=== PATIENT | female | born 1995 | race Caucasian/White ===

== ENCOUNTER 2022-06-05 14:30 | Outpatient (CLI) | payer OTHER ==
[2022-06-06 12:58] LABS: BILIRUBIN,URINE NEGATIVE (NEGATIVE); GLUCOSE, URINE (UA) NEGATIVE (NEGATIVE); KETONES,URINE (UA) NEGATIVE (NEGATIVE); LEUKOCYTE ESTERASE, URINE NEGATIVE (NEGATIVE); NITRITE,URINE NEGATIVE (NEGATIVE); OCCULT BLOOD,URINE NEGATIVE (NEGATIVE); PROTEIN,URINE NEGATIVE (NEGATIVE); UROBILINOGEN,URINE 0.2 (NORMAL) E.U./dL (NORMAL)
[2022-06-06 13:04] LABS: BACTERIA,URINE Moderate /HPF (None Seen); CLARITY,URINE HAZY (CLEAR); MUCUS,URINE Few Strands; RBC,URINE None Seen /HPF (0-5); SQUAMOUS EPITHELIAL CELL,UR MOD Squamous (<= Few); WBC,URINE 0-3 /HPF (0-5)
== END 2022-06-05 23:59 | disposition home or self-care (01) ==
LOC: LAB.WC 14:30
PROVIDERS: ATTEND Obstetrics & Gynecology
DX: Z34.90 Encounter for supervision of normal pregnancy, unspecified, unspecified trimester (principal)
CPT/HCPCS: 81001; 87086

== ENCOUNTER 2022-06-17 18:38 | Outpatient (CLI) | payer OTHER ==
--- NOTE | 2022-06-19 11:02 | Ultrasound Report ---
PROCEDURE: OB First Trimester w/TV INDICATIONS: POSITIVE TEST OUTSIDE/PRIOR DATING DATA: Last menstrual period (LMP): 03/24/2022. LMP-based estimated date of delivery (ERNA): 12/29/2022. First dating scan (date and location): 06/17/2022. Estimated date of delivery (ERNA) from first dating scan: 12/27/2022. The below data below was generated using the ultrasound ERNA of 12/27/2022 TECHNIQUE: Real-time scanning was performed of the fetus and maternal pelvic organs, with image documentation. Endovaginal scanning was also performed to better visualize the fetus and maternal ovaries. COMPARISON: None FINDINGS: Embryo: An intrauterine gestation is seen with a mean gestational sac of 6.1 cm corresponding with 1 2 weeks 2 days. [place]-rump length is 6.0 cm corresponding with 12 weeks 3 days. No perigestational bl eed. Heart rate: 164 Measurement variability in dating: +/- 4 weeks by LMP, +/- 7 days by mean sac diameter (use before 6 weeks gestation if crown-rump length not able to be measured), +/- 5 days by crown-rump length (6-12 weeks gestation). Maternal organs: Ovaries normal. IMPRESSION: Live intrauterine with a composite gestational age of 12 weeks 3 days. Reviewed by: Rusty Camacho on 06/19/2022 11:01 AM PST Approved by: Rusty Camacho on 06/19/2022 11:01 AM PST Station ID: [id number]
== END 2022-06-17 18:39 | disposition home or self-care (01) ==
LOC: DI 18:38
PROVIDERS: ATTEND Nurse Practitioner
DX: Z34.91 Encounter for supervision of normal pregnancy, unspecified, first trimester (principal)

== ENCOUNTER 2022-06-18 08:00 | Outpatient (CLI) | payer OTHER ==
[2022-06-18 23:12] LABS: CHLAMYDIA TRACHOMATIS DNA NEGATIVE (NEGATIVE); NEISSERIA GONORRHOEAE DNA NEGATIVE (NEGATIVE); TRICHOMONAS VAGINALIS DNA NEGATIVE (NEGATIVE)
== END 2022-06-18 23:59 | disposition home or self-care (01) ==
LOC: LAB 08:00
PROVIDERS: ATTEND Obstetrics & Gynecology
DX: Z11.3 Encounter for screening for infections with a predominantly sexual mode of transmission (principal)
CPT/HCPCS: 87491; 87591; 87661

== ENCOUNTER 2022-06-18 09:20 | Outpatient (CLI) | payer OTHER ==
[2022-06-18 09:38] LABS: BASOPHILS % (AUTO) 0.1 %; EOSINOPHILS # (AUTO) 0.1 10^3/uL (0.0-0.7); EOSINOPHILS % (AUTO) 1.3 %; HCT - HEMATOCRIT 39.3 % (37.0-47.0); HGB - HEMOGLOBIN 13.3 g/dL (12.0-16.0); LYMPHOCYTES % (AUTO) 26.1 %; MEAN CORPUSCULAR HEMOGLOBIN 29.8 pg (27.0-31.0); MEAN CORPUSCULAR HGB CONC 33.8 g/dL (32.0-36.0); MEAN CORPUSCULAR VOLUME 87.9 fL (81.0-99.0); MEAN PLATELET VOLUME 11.8 fL (7.9-10.8); MONOCYTES # (AUTO) 0.4 10^3/uL (0.0-1.0); MONOCYTES % (AUTO) 5.1 %; NEUTROPHILS # (AUTO) 5.1 10^3/uL (1.5-6.6); NEUTROPHILS % (AUTO) 67.1 %; PLT - PLATELET COUNT 192 10^3/uL (130-450); RED BLOOD COUNT 4.47 10^6/uL (4.20-5.40); RED CELL DISTRIBUTION WIDTH 12.4 % (12.0-15.0); WHITE BLOOD COUNT 7.7 x10^3/uL (4.8-10.8)
[2022-06-19 04:08] LABS: HBsAG SCREEN Negative (Negative); HCV AB <0.1 s/co ratio (0.0-0.9); HIV SCREEN 4TH GENERATION Non Reactive (Non Reactive)
[2022-06-19 06:09] LABS: RPR Non Reactive (Non Reactive)
[2022-06-20 08:08] LABS: VARICELLA-ZOSTER AB IGG <135 index (Immune >165)
== END 2022-06-18 09:21 | disposition home or self-care (01) ==
LOC: LAB 09:20
PROVIDERS: ATTEND Nurse Practitioner
DX: Z34.90 Encounter for supervision of normal pregnancy, unspecified, unspecified trimester (principal)
CPT/HCPCS: 36415; 85025; 86592; 86762; 86787; 86803; 86850; 86900; 86901; 87340; 87389

== ENCOUNTER 2022-07-16 11:19 | Outpatient (CLI) | payer OTHER | END 2022-07-16 11:20 | disposition home or self-care (01) | LOC: LAB 11:19 | PROVIDERS: ATTEND Obstetrics & Gynecology | DX: Z34.91 Encounter for supervision of normal pregnancy, unspecified, first trimester (principal); Z3A.12 12 weeks gestation of pregnancy | CPT/HCPCS: 36415 ==

== ENCOUNTER 2022-08-11 15:13 | Outpatient (CLI) | payer OTHER ==
--- NOTE | 2022-08-12 11:55 | Ultrasound Report ---
PROCEDURE: OB Detailed Eval INDICATIONS: SUPERVISION OF OUTSIDE/PRIOR DATING DATA: Last menstrual period (LMP): 03/24/2022. LMP-based estimated date of delivery (ERNA): 12/29/2022. First dating scan (date and location): 06/17/2022. Estimated date of delivery (ERNA) from first dating scan: 12/27/2022. The below data below was generated using the ultrasound ERNA of 12/27/2022 TECHNIQUE: Real-time scanning was performed of the fetus, with image documentation and biometric measurements. COMPARISON: OB ultrasound 06/17/2022 FINDINGS: General: A single living intrauterine gestation is present. Presentation: Variable Placenta: Placental position is posterior, without previa. Amniotic fluid index: 16.5 cm, normal for gestational age. Largest pocket 4.6 cm. heart rate: 133 beats per minute. Maternal cervical canal: 4.3 cm long; normal length is 2.5 cm or more. No funneling. biometrics: Biparietal diameter: 4.7 cm, 20 weeks 2 days Head circumference: 17.5 cm, 20 weeks 0 days Abdominal circumference: 13.9 cm, 19 weeks 2 days Femur length: 3.4 cm, 20 weeks 6 days Estimated gestational age from initial scan: 20 weeks 2 days Composite gestational age from present scan: 20 weeks 0 days Estimated weight and percentile: 327 g, 31st percentile Measurement variability in biometric dating: +/- 10 days from 12-20 weeks gestation, +/- 2 weeks from 20-30 weeks gestation, +/- 3 weeks at 30 weeks gestation or later. Anatomic survey: Neuro: Ventricles are normal at less than 10 mm. Cisterna magna is normal at 3-11 mm. Cerebellum i s normal in size and morphology. Nuchal skin fold: Normal at less than 6 mm between 14 and 20 weeks gestational age. Face: Not well seen. Spine: No evidence for spina bifida. Heart: Not well seen Diaphragm: Diaphragm is intact. Stomach: Left-sided stomach is present. Kidneys: No hydronephrosis. Normal is less than 5 mm in 2nd trimester, less than 7 mm in 3rd trimester. Cord: 3 vessel cord has orthotopic insertion. Bladder: Normal in size. Extremities: All 4 extremities are visualized. IMPRESSION: 1. Bowling living intrauterine at 20 weeks 0 days based on today's ultrasound. This is co ncordant with the first trimester ultrasound. Fetus is at the 31st percentile for weight. 2. Normal placenta and amniotic fluid. 3. facial structures and heart are not well seen. Otherwise normal anatomic survey. Recommend follow-up OB ultrasound. Reviewed by: Andrés Roblero MD on 08/12/2022 11:54 AM PST Approved by: Andrés Roblero MD on 08/12/2022 11:54 AM PST Station ID: [id number]
== END 2022-08-11 15:14 | disposition home or self-care (01) ==
LOC: DI 15:13
PROVIDERS: ATTEND Obstetrics & Gynecology
DX: Z34.92 Encounter for supervision of normal pregnancy, unspecified, second trimester (principal)

== ENCOUNTER 2022-08-26 16:17 | Outpatient (CLI) | payer OTHER ==
--- NOTE | 2022-08-27 16:23 | Ultrasound Report ---
PROCEDURE: OB F/U or Repeat INDICATIONS: SUPERVISION OF OUTSIDE/PRIOR DATING DATA: Last menstrual period (LMP): 03/24/2022. LMP-based estimated date of delivery (ERNA): 12/29/2022. First dating scan (date and location): 06/17/2022. Estimated date of delivery (ERNA) from first dating scan: 12/27/2022. The below data below was generated using the study generated ERNA of 12/27/2022 TECHNIQUE: Real-time scanning was performed of the fetus, with image documentation. Endovaginal scanning: Not indicated COMPARISON: 08/11/2022, 06/17/2022. FINDINGS: General: A single living intrauterine gestation is present. Presentation: Vertex Placenta: Placental position is posterior, without previa. Amniotic fluid index: 16.9 cm, normal for gestational age. heart rate: 158 beats per minute. Maternal cervical canal: Not well seen. Estimated gestational age from initial scan: 22 weeks, 3 days Other: facial profile is visualized and is within normal limits. Outflow tracts and four-chambe r heart are also visualized and are within normal limits. IMPRESSION: 1. Single live intrauterine gestation with fetus in vertex presentation. heart rate is 158 bpm. Normal amount of amniotic fluid. ALPHONSE is 16.9 cm. 2. Normal facial profile, 4 chamber heart and outflow tracts. Reviewed by: Vadim Crow MD on 08/27/2022 4:22 PM PST Approved by: Vadim Crow MD on 08/27/2022 4:22 PM PST Station ID: [id number]
== END 2022-08-26 16:18 | disposition home or self-care (01) ==
LOC: DI 16:17
PROVIDERS: ATTEND Obstetrics & Gynecology
DX: Z34.92 Encounter for supervision of normal pregnancy, unspecified, second trimester (principal)
CPT/HCPCS: 81599